=== PATIENT | female | born 2005 | race Caucasian/White ===

== ENCOUNTER 2024-01-14 11:39 | Emergency (ER) | payer OTHER ==
[2024-01-14 11:59] VITALS: BP 106/64; PULSE 82; RESP 16; TEMP 98; BMI 29.1
[2024-01-14] MEDS ORDERED: ACETAMINOPHEN 500 MG TABLET (FP) ONE (12:21)
[2024-01-14] MEDS: ACETAMINOPHEN 500 MG TABLET (FP) PO ONE (12:22)
== END 2024-01-14 13:40 | disposition home or self-care (01) ==
LOC: EDBD → FER 11:39
DX: S93.401A Sprain of unspecified ligament of right ankle, initial encounter (principal); W10.8XXA Fall (on) (from) other stairs and steps, initial encounter
CPT/HCPCS: 73610-TC-RT-FY; 73630-TC-RT-FY; 99283-25